=== PATIENT | female | born 1980 | race Caucasian/White ===

== ENCOUNTER 2022-09-21 05:40 | Outpatient (CLI) | payer MEDICARE, MEDICAID ==
[~2022-09-21] VITALS: Ht 152.4 cm; Wt 94.8 kg
[~2022-09-21 05:40] MED LIST: BCP PO; DIVA500T15 PO; KCL20TCR PO; OLAN20TA3 PO; OMEP20CA6 PO; SIMV80TA3 PO; TEMA15CA54 PO
[2022-09-27] MEDS ORDERED: RT-ALBUINH INH (12:02)
[2022-09-27] MEDS ORDERED: ONDA4TAB11 SL (12:02)
[2022-09-27] MEDS ORDERED: SUCR1TAB36 PO (12:02)
[2022-09-27] MEDS ORDERED: LACT10PA3 PO (12:02)
[2022-09-27] MEDS ORDERED: DIVA-76 PO (12:02)
[2022-09-27] MEDS ORDERED: DOCU100T7 PO (12:02)
[2022-09-27] MEDS ORDERED: ALB0.5V INH (12:02)
[2022-09-27] MEDS ORDERED: CYCL10TA25 PO (12:02)
[2022-09-27] MEDS ORDERED: DIVA-74 PO (12:02)
[2022-09-27] MEDS ORDERED: FLUT1DIS26 IH (12:02)
== END 2022-09-27 12:18 | disposition home or self-care (01) ==
LOC: PREOP 05:40
PROVIDERS: ATTEND Surgery
DX: Z01.818 Encounter for other preprocedural examination (principal)

== ENCOUNTER 2022-09-28 08:41 | Day surgery (SDC) | payer MEDICARE, MEDICAID ==
[~2022-09-28] VITALS: Ht 152.4 cm; Wt 94.8 kg
[~2022-09-28 08:41] MED LIST changes: +ALB0.5V INH; +CYCL10TA25 PO; +DIVA-74 PO; +DIVA-76 PO; +DOCU100T7 PO; +FLUT1DIS26 IH; +LACT10PA3 PO; +ONDA4TAB11 SL; +RT-ALBUINH INH; +SUCR1TAB36 PO
[2022-09-28] MEDS ORDERED: LACTATED RINGERS 1,000 ML IV STA (08:49)
--- NOTE | 2022-09-28 08:58 | Progress Note-Pre Operative ---
Pre-Operative Progress Note Date of Available H&P: Aug 30, 2022 Date H&P Reviewed: Sep 28, 2022 Time H&P Reviewed: 08:57 History & Physical: H&P Reviewed, Patient Examed, No changes noted Pre-Operative Diagnosis: hematemesis, hematochezia, ruq abdominal pain LEVAR TAM DO Sep 28, 2022 08:58
[2022-09-28 09:00] VITALS: BP 115/69
[2022-09-28] MEDS ORDERED: HURRICAINE EXT TUBE (BENZOCAINE) XX PRN (09:00)
[2022-09-28] MEDS ORDERED: MIDAZOLAM 2 MG/2 ML (VERSED) VIAL ONE (09:23)
[2022-09-28] MEDS ORDERED: proPOfol 200 MG/20 ML (DIPRIVAN) VIAL IV ONE ×2 (09:24→10:04)
--- NOTE | 2022-09-28 10:06 | Anesthesia-General Post-Op ---
MAC Patient Condition Mental Status/LOC: Same as Preop Cardiovascular: Satisfactory Nausea/Vomiting: Absent Respiratory: Satisfactory Pain: Controlled Complications: Absent Post Op Complications Complications None Follow Up Care/Instructions Patient Instructions None needed. Anesthesiology Discharge Order Discharge Order Patient is doing well, no complaints, stable vital signs, no apparent adverse anesthesia problems. No complications reported per nursing. JORGE CERRATO DO Sep 28, 2022 10:06
--- NOTE | 2022-09-28 10:08 | Discharge Inst-Simple/Standard ---
Discharge Inst-Standard Patient Instructions/Follow Up Plan of Care/Instructions/FU: Niurka 2 weeks Activity as Tolerated: Yes Discharge Diet: Regular Diet LEVAR TAM DO Sep 28, 2022 10:08
[2022-09-28 10:09] VITALS: BP 109/66
[2022-09-28 10:15] VITALS: BP 115/61
[2022-09-28 10:40] VITALS: BP 115/61
--- NOTE | 2022-09-28 17:12 | OPERATIVE REPORT ---
DATE OF SERVICE: 09/28/2022 PREOPERATIVE DIAGNOSES: Hematemesis and hematochezia. POSTOPERATIVE DIAGNOSES: Hiatal hernia, duodenal mucosal change, sigmoid and rectal polyp. PROCEDURES: EGD with biopsy, colonoscopy with hot biopsy polypectomy x2. SURGEON: Dr. Bah. ANESTHESIA: Per MDA. ESTIMATED BLOOD LOSS: None. COMPLICATIONS: None. INDICATIONS: The patient is a 42-year-old female with recent hematemesis and hematochezia. She understands the risks and benefits of procedure and wishes to proceed. Consent was signed in chart. DESCRIPTION OF PROCEDURE: The patient was taken to the endoscopy suite, placed in left lateral recumbent position. Timeout was performed. Scope was inserted in the mouth, down the esophagus, stomach and into the duodenum without difficulty. No polyps, masses or ulcerations within the distal duodenum. In the proximal duodenum, some slight mucosal change which cold biopsy was obtained. Scope was then slowly retracted back into the stomach, where it was further insufflated. No polyps, masses or ulcerations. Biopsy of the antrum was obtained. Scope was retroflexed noting a small hiatal hernia. No other pathology. Scope was returned to its normal position and slowly withdrawn to distal esophagus. Biopsy of the GE junction was obtained. Scope was slowly retracted back until completely removed, noting no other pathology. Digital rectal exam was performed. No palpable polyps, masses or ulcerations. Scope was inserted in the rectum, advanced all the way to the cecum without difficulty. Prep was adequate with irrigation and suction. Scope was slowly retracted back. No polyps, masses or ulceration within the cecum, ascending, transverse and descending colon. In the sigmoid colon, small polyp was present, which hot biopsy polypectomy was performed. Scope was then continuously retracted back into the rectum, also noting a very small polyp, which hot biopsy polypectomy was performed. Scope was retroflexed noting some slight internal hemorrhoids. The scope was returned to its normal position, slowly withdrawn until completely removed, noting no other pathology. The patient tolerated the procedure well without any complications, taken to recovery room in stable condition. RECOMMENDATION: The patient will need repeat colonoscopy in five years. Any issues before that be seen at that time. The patient should continue on current medications. She will follow up in two weeks to discuss pathology results. Job ID: [id number] DocumentID: [id number] Dictated Date: 09/28/2022 10:07:42 Extension Supervisor Date: 09/28/2022 17:10:00 Dictated By: LEVAR BAH DO
== END 2022-09-28 10:43 | disposition home or self-care (01) ==
LOC: ENDO 08:41
PROVIDERS: ATTEND Surgery
DX: K63.5 Polyp of colon (principal); K62.1 Rectal polyp; K44.9 Diaphragmatic hernia without obstruction or gangrene; K29.51 Unspecified chronic gastritis with bleeding; K21.00 Gastro-esophageal reflux disease with esophagitis, without bleeding; K31.89 Other diseases of stomach and duodenum; E66.01 Morbid (severe) obesity due to excess calories; F17.210 Nicotine dependence, cigarettes, uncomplicated; Z79.899 Other long term (current) drug therapy; Z68.41 Body mass index [BMI] 40.0-44.9, adult
CPT/HCPCS: 84703

== ENCOUNTER 2023-03-07 22:23 | Emergency (ER) | payer MEDICARE, MEDICAID ==
[2023-03-07] MEDS ORDERED: NS IV 1000 ML 1,000 ML IV SCH (22:30)
[2023-03-07 22:42] LABS: BASOPHILS % (AUTO) 0 % (0-10); EOSINOPHILS # (AUTO) 0.1 10^3/uL (0.0-0.3); EOSINOPHILS % (AUTO) 1 % (0-10); HEMATOCRIT 36 % (35-52); HEMOGLOBIN 11.7 g/dL (11.5-16.0); LYMPHOCYTES # (AUTO) 3.3 10^3/uL (1.0-4.0); LYMPHOCYTES % (AUTO) 35 % (12-44); MEAN CORPUSCULAR HEMOGLOBIN 29 pg (25-34); MEAN CORPUSCULAR HGB CONC 32 g/dL (32-36); MEAN CORPUSCULAR VOLUME 90 fL (80-99); MEAN PLATELET VOLUME 10.9 fL (9.0-12.2); MONOCYTES % (AUTO) 10 % (0-12); NEUTROPHILS # (AUTO) 5.1 10^3/uL (1.8-7.8); NEUTROPHILS % (AUTO) 53 % (42-75); PLATELET COUNT 278 10^3/uL (130-400); WHITE BLOOD COUNT 9.6 10^3/uL (4.3-11.0)
[2023-03-07 22:47] LABS: BILIRUBIN,URINE NEGATIVE (NEGATIVE); CLARITY,URINE CLOUDY; COLOR,URINE DARK YELLOW; GLUCOSE, URINE (UA) NEGATIVE (NEGATIVE); KETONES,URINE TRACE (NEGATIVE); LEUKOCYTE ESTERASE ,URINE NEGATIVE (NEGATIVE); NITRITE,URINE NEGATIVE (NEGATIVE); PROTEIN,URINE NEGATIVE (NEGATIVE)
[2023-03-07 22:53] LABS: BACTERIA,URINE MODERATE /HPF; HCG,QUALITATIVE URINE NEGATIVE (NEGATIVE); RBC,URINE 0-2 /HPF
[2023-03-07 22:54] LABS: AMPHETAMINE SCREEN, URINE NEGATIVE (NEGATIVE); BARBITURATE SCREEN URINE NEGATIVE (NEGATIVE); BENZODIAZEPINES SCREEN URINE NEGATIVE (NEGATIVE); CANNABINOID SCREEN, URINE NEGATIVE (NEGATIVE); COCAINE SCREEN URINE NEGATIVE (NEGATIVE); METHADONE STAT NEGATIVE (NEGATIVE); OPIATE SCREEN URINE NEGATIVE (NEGATIVE); OXYCODONE STAT NEGATIVE (NEGATIVE); TRICYCLIC ANTIDEPRESSANTS SCRE POSITIVE (NEGATIVE)
[2023-03-07 22:55] LABS: PROPOXYPHENE STAT NEGATIVE (NEGATIVE)
[2023-03-07 23:01] LABS: ALANINE AMINOTRANSFERASE 12 U/L (0-55); ALBUMIN 4.1 GM/DL (3.2-4.5); ALKALINE PHOSPHATASE 86 U/L (40-136); BILIRUBIN,TOTAL 0.3 MG/DL (0.1-1.0); BUN/CREATININE RATIO 13; CALCIUM 9.5 MG/DL (8.5-10.1); CARBON DIOXIDE 22 MMOL/L (21-32); CHLORIDE 104 MMOL/L (98-107); CREATININE SERUM 0.72 MG/DL (0.60-1.30); GFR ESTIMATED 108; GLUCOSE 100 MG/DL (70-105); POTASSIUM 3.3 MMOL/L (3.6-5.0); SODIUM 141 MMOL/L (135-145); TOTAL PROTEIN 6.9 GM/DL (6.4-8.2)
--- NOTE | 2023-03-07 23:01 | ED Psychosocial ---
General Chief Complaint: Overdose Stated Complaint: OVERDOSE Source: patient, EMS notes reviewed Exam Limitations: no limitations (ART LORENZANA MD) History of Present Illness Date Seen by Provider: Mar 07, 2023 Time Seen by Provider: 22:25 Initial Comments 43-year-old female patient with history of bipolar and schizophrenia and hypothyroidism brought in by EMS because of overdose of levothyroxine. Patient stated she was broke up with her boyfriend loretta and became mad and took a whole bottle of levothyroxine of 25 mcg that was refilled on February 22 for 30 pills with maximum pills she took was 16. Patient states she is not suicidal but she just was mad at her boyfriend. Patient states that she took the medication just prior to informing EMS by neighbors. Patient stated she had suicidal attempt at the age of 17 and was admitted at [facility] 2 years ago. Patient stated she took methamphetamine 1 month ago and drinks alcohol occasionally and smokes cigarettes daily. Patient is alert and oriented but is very anxious and talking nonstop. Patient denies nausea and vomiting, headache, abdominal pain, shortness of breath and chest pain. Patient complaining of chest pain to the EMS but denied chest pain in ER. (ART LORENZANA MD) Allergies and Home Medications Allergies Coded Allergies: Penicillins (Unverified Allergy, Intermediate, HIVES, 09/27/22) bupropion (Unverified Allergy, Intermediate, HIVES, 09/27/22) sertraline (Unverified Allergy, Intermediate, HALCINATIONS, 09/27/22) cephalexin (Unverified Allergy, Mild, HIVES, 09/27/22) fluoxetine (Unverified Allergy, Mild, HALLUCINATE, 09/27/22) haloperidol (Unverified Allergy, Mild, MAKES HER MEAN SHE STATES, 09/27/22) Patient Home Medication List Home Medication List Reviewed: Yes (ART LORENZANA MD) Home Medication List Reviewed: Yes (JOMAR JOHN MD) Albuterol Sulfate (Ventolin Hfa) 1 Puff Puff, 2 PUFF INH Q4H, (Reported) Entered as Reported by: TRINA SANCHEZ on 09/27/22 1202 Albuterol Sulfate (Albuterol Sulfate) Unknown Strength Vial.neb, Unknown Dose INH Q4H, (Reported) Entered as Reported by: TRINA SANCHEZ on 09/27/221201 Cyclobenzaprine HCl (Cyclobenzaprine HCl) 10 Mg Tablet, 10 MG PO UD, (Reported) Entered as Reported by: TRINA SANCHEZ on 09/27/221201 Divalproex Sodium (Divalproex Sodium) 250 Mg Tablet.dr, 250 MG PO DAILY, (R eported) Entered as Reported by: TRINA SANCHEZ on 09/27/221201 Divalproex Sodium (Divalproex Sodium) 500 Mg Tablet.dr, 500 MG PO HS, (Reported) Entered as Reported by: TRINA SANCHEZ on 09/27/221201 Docusate Sodium (Stool Softener) 100 Mg Tablet, 100 MG PO UD, (Reported) Entered as Reported by: TRINA SANCHEZ on 09/27/221201 Fluticasone/Salmeterol (Advair 250-50 Diskus) Unknown Strength Blst.w.dev, Unknown Dose IH, (Reported) Entered as Reported by: TRINA SANCHEZ on 09/27/221201 Lactulose (Lactulose) 10 Gram Packet, 10 GM PO BID, (Reported) Entered as Reported by: TRINA SANCHEZ on 09/27/221201 Olanzapine (Zyprexa) 20 Mg Tablet, 10 MG PO HS, (Reported) Entered as Reported by: JACQUELINE PRADO on 01/27/102126 Omeprazole (Prilosec) 20 Mg Capsule.dr, 20 MG PO DAILY, (Reported) Entered as Reported by: JACQUELINE PRADO on 01/27/102126 Ondansetron (Ondansetron Odt) 4 Mg Tab.rapdis, 4 MG SL Q4H PRN for NAUSEA/VOMITING, (Reported) Entered as Reported by: TRINA SANCHEZ on 09/27/221201 Sucralfate (Carafate) 1 Gram Tablet, 1 GM PO TID, (Reported) Entered as Reported by: TRINA SANCHEZ on 09/27/221201 [Bcp] , 1 TAB PO DAILY, (Reported) Entered as Reported by: JACQUELINE MAGAÑA on 05/20/10 0018 Review of Systems Constitutional: see HPI EENTM: see HPI Respiratory: see HPI Cardiovascular: see HPI Gastrointestinal: see HPI Genitourinary: see HPI Musculoskeletal: see HPI Skin: see HPI Psychiatric/Neurological: See HPI (ART LORENZANA MD) All Other Systems Reviewed Negative Unless Noted: Yes (ART LORENZANA MD) Past Imryioa-Euffhx-Eazhnc Hx Patient Social History Tobacco Use?: Yes Substance use?: Yes Substance type: Methamphetamine, Marijuana Alcohol Use?: Yes Pt feels they are or have been: No (ART LORENZANA MD) Immunizations Up To Date First/Initial COVID19 Vaccinat: ?? Second COVID19 Vaccination Deshawn: ?? Third COVID19 Vaccination Date: ?? (ART LORENZANA MD) Seasonal Allergies Seasonal Allergies: Yes (ART LORENZANA MD) Past Medical History Surgeries: Yes (BLADDER SX CHILD) Respiratory: Yes Asthma Cardiac: Yes High Cholesterol Neurological: Yes Seizure Disorder Genitourinary: Yes (BLADDER ) Gastrointestinal: No Musculoskeletal: Yes Scoliosis Endocrine: Yes (NO MEDS FOR DM YET MONITORING ) HEENT: No Cancer: Yes Cervical Anxiety, Bipolar, Schizophrenia Integumentary: Yes Eczema Blood Disorders: No (ART LORENZANA MD) Physical Exam Vital Signs - First Documented 03/07/23 03/08/23 22:25 14:52 Temp 36.5 Pulse 110 Resp 20 B/P (MAP) 146/94 (111) Pulse Ox 97 O2 Delivery Room Air (JOMAR JOHN MD) Capillary Refill : (ART LORENZANA MD) Height, Weight, BMI Height: '" Weight: lbs. oz. kg; 40.81 BMI Method: General Appearance: mild distress (Anxious) HEENT: PERRL/EOMI, normal ENT inspection Neck: non-tender, full range of motion Respiratory: chest non-tender, lungs clear, normal breath sounds Cardiovascular: regular rate, rhythm, no edema Gastrointestinal: normal bowel sounds, non tender, soft Extremities: normal range of motion, non-tender Neurologic/Psychiatric: alert, oriented x 3 Appearance/Memory: no memory impairment, denies illness, impaired insight Behavior/Eye Contact: cooperative, increased rate of speech Thoughts/Hallucinations: no apparent hallucination, grandiose Skin: normal color, warm/dry Lymphatic: no adenopathy (ART LORENZANA MD) Progress/Results/Core Measures Results/Orders Lab Results Laboratory Tests Test 03/07/23 22:30 03/07/23 22:40 Range/Units White Blood Count 9.6 4.3-11.0 10^3/uL Red Blood Count 4.03 3.80-5.11 10^6/uL Hemoglobin 11.7 11.5-16.0 g/dL Hematocrit 36 35-52 % Mean Corpuscular Volume 90 80-99 fL Mean Corpuscular Hemoglobin 29 25-34 pg Mean Corpuscular Hemoglobin Concent 32 32-36 g/dL Red Cell Distribution Width 15.8 H 10.0-14.5 % Platelet Count 278 130-400 10^3/uL Mean Platelet Volume 10.9 9.0-12.2 fL Immature Granulocyte % (Auto) 0 % Neutrophils (%) (Auto) 53 42-75 % Lymphocytes (%) (Auto) 35 12-44 % Monocytes (%) (Auto) 10 0-12 % Eosinophils (%) (Auto) 1 0-10 % Basophils (%) (Auto) 0 0-10 % Neutrophils # (Auto) 5.1 1.8-7.8 10^3/uL Lymphocytes # (Auto) 3.3 1.0-4.0 10^3/uL Monocytes # (Auto) 1.0 0.0-1.0 10^3/uL Eosinophils # (Auto) 0.1 0.0-0.3 10^3/uL Basophils # (Auto) 0.0 0.0-0.1 10^3/uL Immature Granulocyte # (Auto) 0.0 0.0-0.1 10^3/uL Sodium Level 141 135-145 MMOL/L Potassium Level 3.3 L 3.6-5.0 MMOL/L Chloride Level 104 98-107 MMOL/L Carbon Dioxide Level 22 21-32 MMOL/L Anion Gap 15 H 5-14 MMOL/L Blood Urea Nitrogen 9 7-18 MG/DL Creatinine 0.72 0.60-1.30 MG/DL Estimat Glomerular Filtration Rate 108 BUN/Creatinine Ratio 13 Glucose Level 100 70-105 MG/DL Calcium Level 9.5 8.5-10.1 MG/DL Corrected Calcium 9.4 8.5-10.1 MG/DL Total Bilirubin 0.3 0.1-1.0 MG/DL Aspartate Amino Transf (AST/SGOT) 16 5-34 U/L Alanine Aminotransferase (ALT/SGPT) 12 0-55 U/L Alkaline Phosphatase 86 40-136 U/L Total Protein 6.9 6.4-8.2 GM/DL Albumin 4.1 3.2-4.5 GM/DL Salicylates Level < 0.3 L 5.0-20.0 MG/DL Acetaminophen Level < 10 L 10-30 UG/ML Serum Alcohol < 10 <10 MG/DL Urine Color DARK YELLOW Urine Clarity CLOUDY Urine pH 6.0 5-9 Urine Specific [place] >=1.030 1.016-1.022 Urine Protein NEGATIVE NEGATIVE Urine Glucose (UA) NEGATIVE NEGATIVE Urine Ketones TRACE H NEGATIVE Urine Nitrite NEGATIVE NEGATIVE Urine Bilirubin NEGATIVE NEGATIVE Urine Urobilinogen 0.2 < = 1.0 MG/DL Urine Leukocyte Esterase NEGATIVE NEGATIVE Urine RBC (Auto) NEGATIVE NEGATIVE Urine RBC 0-2 /HPF Urine WBC 2-5 /HPF Urine Squamous Epithelial Cells 10-25 H /HPF Urine Crystals NONE /LPF Urine Bacteria MODERATE H /HPF Urine Casts NONE /LPF Urine Mucus SMALL H /LPF Urine Culture Indicated NO Urine Test NEGATIVE NEGATIVE Urine Opiates Screen NEGATIVE NEGATIVE Urine Oxycodone Screen NEGATIVE NEGATIVE Urine Methadone Screen NEGATIVE NEGATIVE Urine Propoxyphene Screen NEGATIVE NEGATIVE Urine Barbiturates Screen NEGATIVE NEGATIVE Ur Tricyclic Antidepressants Screen POSITIVE H NEGATIVE Urine Phencyclidine Screen NEGATIVE NEGATIVE Urine Amphetamines Screen NEGATIVE NEGATIVE Urine Methamphetamines Screen NEGATIVE NEGATIVE Urine Benzodiazepines Screen NEGATIVE NEGATIVE Urine Cocaine Screen NEGATIVE NEGATIVE Urine Cannabinoids Screen NEGATIVE NEGATIVE (JOMAR JOHN MD) My Orders Orders - JOMAR JOHN MD Sucralfate Tablet (Carafate Tablet) (03/08/23 08:54) Olanzapine Orally Dissolve Tab (Zyprexa (03/08/23 08:54) Cyclobenzaprine Tablet (Flexeril Tablet) (03/08/23 09:00) Pantoprazole Tablet (Protonix Tablet) (03/08/23 09:06) Lactulose Oral Solution (Enulose Oral So (03/08/23 09:04) Pantoprazole Tablet (Protonix Tablet) (03/08/23 09:05) Lactulose Oral Solution (Enulose Oral So (03/08/23 09:10) Ondansetron Oral Dissolve Tab (Zofran (6/20/23 10:21) Nicotine Patch (Nicoderm Patch) (03/08/23 17:38) Ondansetron Oral Dissolve Tab (Zofran (03/08/23 22:30) (JOMAR JOHN MD) Medications Given in ED (JOMAR JOHN MD) Vital Signs/I&O (JOMAR JOHN MD) Progress Progress Note : Progress Note @2300: Poison control was contacted and informed about possible overdose of 400 mcg of levothyroxine and they recommended no acute treatment at this time because it is a low dose and effect of medication is going to show in about 1 week and needs thyroid test in about 1 week as outpatient. @0110: Patient was screened by psych body piercer and had criteria for inpatient admission because of signs of psychosis and suicidal attempt. Patient was not agreed for inpatient treatment and removed her IV line and ran away from the ER and brought back to ER from parking lot by PD. Patient is involuntary for admission for suicidal attempt and psychosis and is in the waiting list for admission to [facility]. @0700: Patient is sleeping. Patient care transferred to incoming ER physician Dr. John at 0700. (ART LORENZANA MD) Progress Note : Time: 07:00 Progress Note I assumed care of the patient from Dr. Lorenzana at shift change. Patient was medically cleared by her overnight and had screening by [facility]. She is an involuntary admit waiting on placement at inpatient psychiatric facility. 0900 Patient requests her chronic medications because she reports she was to take them at 8 am. Her medicines are at home with her Mom. From review of external medication prescription history she is to take Carafate 1 gm po tid ac, Depakote 250 mg in am and 500 mg in PM, Olanzapine 5 mg AM and 10 mg HS, Omeprazole 20 mg daily, Lactulose 10 gm/15 mL at a dose of 20 mL (13.3 grams) BID, Cyclobenzaprine 10 mg po TID prn muscle spasms. Carafate, Cyclobenzaprine, Olanzapine, Lactulose were ordered. Omeprazole not stocked in ED so ordered Pantoprazole 40 mg po x 1. Depakote oral is not stocked in ED so will try to contact her family to see if anyone could bring her medicine from home. [address] hearing with Massage Therapist and she received an order for involuntary committal. Awaiting placement at [facility]. Patient remains cooperative here in the ED. 09 March 2023 at 0440 Patient rested some overnight. Before tube station attendant took over last night OSH was contacted and patient was # 2 on the list for admit. Will check back again in the morning. Will pass care to oncoming provider, Dr. Acosta, at shift change. (JOMAR JOHN MD) Progress Note : Progress Note Pt is accepted for admission to [facility]. Dr. Manley is the accepting physician. (DEION ACOSTA MD) Initial ECG Impression Date: Mar 07, 2023 Initial ECG Impression Time: 22:33 Initial ECG Rate: 95 Initial ECG Intervals EKG interpreted by me and showed normal sinus rhythm at rate of 95, low voltage QRS, CA interval of 165, QT intervals of 336 and QTc of 389, QRS duration of 98, incomplete right bundle branch block, Q waves in anteroseptal leads, no acute ST and T wave elevation. (ART LORENZANA MD) Departure Impression Primary Impression: Acute psychosis Additional Impressions: Intentional overdose Qualified Codes: T50.902A - Poisoning by unspecified drugs, medicaments and biological substances, intentional self-harm, initial encounter Hypokalemia Suicidal ideations Disposition: 65 XFER TO PSYCH HOSP/UNIT Condition: Stable Transfer Transfer Reason: Exceeds level of care Time Spoke to Accepting Phy: 10:00 Transfer Progress Notes Septic to also out of the [facility] for inpatient care. Accepted by Dr. Manley Transfer Facility: [facility] Method of Transfer: Law Enforcement (DEION ACOSTA MD) Departure-Patient Inst. Referrals: NO,LOCAL PHYSICIAN (PCP) Primary Care Physician DILCIA ARREGUIN APRN (Family) Primary Care Physician Patient Instructions: ALCOHOL AND SUBSTANCE ABUSE ART LORENZANA MD Mar 07, 2023 23:01 JOMAR JOHN MD Mar 08, 2023 07:18 DEION ACOSTA MD Mar 09, 2023 10:19
[2023-03-07 23:02] LABS: ACETAMINOPHEN < 10 UG/ML (10-30); SALICYLATE < 0.3 MG/DL (5.0-20.0)
[2023-03-07] MEDS ORDERED: NICOTINE 21 MG (NICODERM) PATCH TD ONE (23:15)
[2023-03-07] MEDS ORDERED: KCL 20 MEQ TAB (K-DUR) PO ONE (23:15)
[2023-03-08] MEDS ORDERED: SUCRALFATE 1 GM (CARAFATE) TAB PO STA (08:54)
[2023-03-08] MEDS ORDERED: OLANZapine 5 MG ODT (ZyPREXA ZYDIS) PO STA (08:54)
[2023-03-08] MEDS ORDERED: PANTOPRAZOLE 20 MG TABLET (PROTONIX) PO STA (08:54)
[2023-03-08] MEDS ORDERED: LACTULOSE SYRUP 10GM/15ML (ENULOSE) 30ML UDC ONE (09:04)
[2023-03-08] MEDS ORDERED: PANTOPRAZOLE 40 MG (PROTONIX) TAB PO ONE (09:05)
[2023-03-08] MEDS ORDERED: PANTOPRAZOLE 40 MG (PROTONIX) TAB PO STA (09:06)
[2023-03-08] MEDS: CYCLOBENZAPRINE 10 MG (FLEXERIL) TAB PO SCH ×3 (09:07→21:51)
[2023-03-08] MEDS ORDERED: LACTULOSE SYRUP 10GM/15ML (ENULOSE) 30ML UDC PO STA (09:10)
[2023-03-08] MEDS ORDERED: ONDANSETRON 4 MG (ZOFRAN) ORAL DISSOLVE TAB PO STA ×2 (10:21→22:30)
[2023-03-08] MEDS ORDERED: NICOTINE 21 MG (NICODERM) PATCH TD STA (17:38)
[2023-03-09] MEDS: CYCLOBENZAPRINE 10 MG (FLEXERIL) TAB PO SCH (09:06)
[2023-03-09 10:34] VITALS: BP 131/75
== END 2023-03-09 10:34 ==
LOC: EDUNIT# 22:23 → ER FS 22:24
DX: T38.1X2A Poisoning by thyroid hormones and substitutes, intentional self-harm, initial encounter (principal); F23 Brief psychotic disorder; E87.6 Hypokalemia; F17.210 Nicotine dependence, cigarettes, uncomplicated; Z28.310 Unvaccinated for COVID-19
CPT/HCPCS: 36415; 80053; 80306; 80320; 80329; 81000; 84703; 85025; 87636; 93005; 93041